=== PATIENT | male | born 1960 | race Caucasian/White ===

== ENCOUNTER → 2016-12-19 | Day surgery (SDC) | payer OTHER ==
[~2016-12-19] VITALS: Ht 190.5 cm; Wt 106.4 kg
[2016-12-19] VITALS (8 sets, daily range): BP systolic 128–145; BP diastolic 77–94; PULSE 60–71; RESP 12–16; O2SAT 92–100
[~2016-12-19] MED LIST: ALLO300T2 PO; ASPI-973 PO; Atropine 0.4 mg/mL Inj IVPUSH PRN; CeFAZolin Inj 2 GM in IV Premix 1 EACH IV ONE; CeFAZolin Inj 2 gm / 50mL D5W IV ONE; Dexamethasone 4 mg/mL Inj IVPUSH PRN; EPHEDrine Sulfate 50 mg/mL Inj IVPUSH PRN; FLUT16SP NS; HYDROcodone-APAP 5-325 mg Tablet PO PRN; HYDROmorphone 1 mg/mL Inj IVPUSH PRN; Ketorolac 15 mg/mL Inj IVPUSH ONE; Labetalol 5 mg/mL 4 mL Inj IV PRN; Lactated Ringer's 1,000 ML IV ONE; Lactated Ringer's 1,000 ML IV SCH; Lactated Ringer's 500 ML IV PRN; MetoCLOpramide 5 mg/mL 2 mL Inj IVPUSH PRN; Ondansetron 2 mg/mL 2 mL Inj IVPUSH PRN; Phenylephrine 10,000 mCg/mL Inj IVPUSH PRN; Ropivacaine-PF 0.5% 30 mL Inj INJ ONE; fentaNYL-PF 50 mCg/mL 2 mL Inj IVPUSH PRN; fentaNYL-PF 50 mCg/mL 2 mL Inj ONE
--- NOTE | 2016-12-19 13:14 | PCM.HPANE ---
Patient Data Date of Service: Dec 19, 2016 Surgeon Admitting Provider: Attending Provider:Rafat Bustillos MD Primary Care Physician:Ian Khan MD Other Provider:Toño Seth Anesthesia Reason for Visit Right Rotator Cuff Tear Ht/WT & BMI Height (Feet): 6 Height (Inches): 3 Weight (Kilograms): 106.4 Body Mass Index 29.00 Allergies Coded Allergies: No Known Allergies (Unverified , 12/19/16) Past Anesthesia History Anesthesia History: Denies:: Abnormal Airway, Anesthesia Reactions, Difficult Intubation, Fam Anesthesia Reaction, Fam Malignant Hypertherm Diabetes History Hx Diabetes?: No MRSA MRSA: No Medications Reported Medications Fluticasone Propionate (Fluticasone Propionate Nasal)16 Gm [place].susp2 [place] NS DAILY #16 GM Ref 0 10/16/16 Allopurinol 300 Mg [id number] Mg PO DAILY Ref 0 10/16/16 Discontinued Reported Medications Aspirin 81 Mg [id number] Mg PO DAILY Ref 0 12/14/16 History History of ENT Problems?: No HEENT History: Denies:: Abnormal Airway Cataracts Difficult Intubation Dysphagia Hearing Problem Sinus Problem TMJ Hx of Heart Problems?: No Cardiovascular History: Denies:: Heart Murmur Hypertension Irregular Heartbeat Pacemaker Valvular Heart Disease Hx of Respiratory Problem?: No Respiratory History: Denies:: Asthma COPD Emphysema Pneumonia Use of C-PAP Machine Hx Neurologic Problems?: No Neurological History: Denies:: Alzheimer's Disease CVA Headaches Multiple Sclerosis Parkinson's Disease Seizures Hx of GI Problems?: No Gastrointestinal History: Denies:: Cirrhosis Heartburn Hepatitis Hiatal Hernia Hx of Problems?: No Genitourinary History: Denies:: Kidney Stones Urinary Tract Infection Male Hx: Denies:: Prostate Problems Scrotal Mass Testicular Surgery Skin History: Positive for:: History Skin Disorders? (S/P EXC FACIAL BASAL CELL CA) Denies:: Pressure Ulcers Hx Musculoskeletal Problems?: Yes Musculoskeletal History: Positive for:: Musculoskeletal Trauma (S/P RT KNEE SCOPE 09/2016 RT ROTATOR CUFF TEAR=CURRENT PROBLEM) Denies:: Joint Replacement Hx of Psycho/Social Problems?: No Hx Surgeries?: Yes (KNEE SCOPE,EXC FACIAL BCC) Hx Any Other Health Problems?: Yes Other History: Positive for:: Cancer (BCC facial) Denies:: Endocrine Disease Hospitalization Thyroid Disease History Blood Transfusions: Denies:: Blood Transfusions Hx Diabetes: No Hx Alcohol Use: NoHx Substance Use: No Smoking Status: Never Smoker Have You Smoked inLast 12 mo: No Stop/Bang Treated for Sleep Apnea?: No Do You Have a CPAP Machine?: No S-Snoring: Do You Snore Loudly: No T-Tired: feel tired, fatigued: No O-Obsered: Observed not breath: No P-Blood Pressure: treated: No B- Body Mass Index > 35 kg/m2: No A- Age over 50: Yes N- Neck Large Circumference: Yes G- Gender Male: Yes DRAKE Total Score: 3 DRAKE Risk Assessment: High Risk, =/>3 Yes Risk Assessment Category Category 1A: Patient has history of documented sleep apnea, and HAS NOT received any narcotic, sedative or anesthesia administration during this stay. Category 1B: Patient has history of documented sleep apnea, and HAS received any narcotic , sedative or anesthesia administration during this stay Category 2: Patient has SUSPECTED Obstructive Sleep Apnea, and HAS received any narcotic , sedative or anesthesia administration during this stay. Category 3: Patient has SUSPECTED Obstructive Sleep Apnea and HAS NOT received narcotic, sedative or anesthesia administration during this stay. Category 4: Outpatient in Procedural Areas with known sleep apnea or who screen positive for High Risk via the STOP/BANG questionnaire. Exam Exam Vital Signs Vital Signs Date Time Temp Pulse Resp B/P Pulse Ox O2 Delivery O2 Flow Rate FiO2 12/19/16 12:30 36.2 62 16 129/81 100 Room Air General Appearance: Alert, Oriented X3, Cooperative HEENT/AIRWAY: MP 2 Lungs: Clear to Auscultation, Normal Air Movement Heart: Exam Unremarkable, Normal S1, Normal S2 Meds/Labs/Diagnostics Admission Meds Current Medications Lactated Ringer's (Lr) 1,000 ml @ ud STK-MED ONCE IV Last administered on t 12:30; Start 12/19/16 at 12:30; Stop 12/19/16 at 12:58; Status DC Plan Impression Patient chart reviewed, patient interviewed and anesthestic plan with risks, benefits, and alternatives discussed, and informed consent obtained. NPO Status: 0800 ASA Physical Status: ASA2 Mod Systemic Disease Anesthetic Plan: GA, Regional Block (ISB/Supraclavicular block / Dr. Olguin) Bene/Risks/Altern/Consents: Yes HP Complete Prior to Induction: Yes Giorgi Ahumada 1, 2017 13:14
--- NOTE | 2016-12-19 14:23 | PCM.ORTHOP ---
Orthopedic Operative Report Date of Service: Dec 19, 2016 Pre Operative Diagnosis right shoulder rotator cuff tear Post Operative Diagnosis right shoulder rotator cuff tear Procedure right shoulder rotator cuff debridement, biceps tenodesis, subacromial decompression, distal clavicle excision, extensive debridement with partial synovectomy Surgeon Surgeon: Rafat Bustillos MD Assistants: Joel Farnsworth Indication for Procedure right shoulder rotator cuff tear Findings per dictation Details of Procedure SENIOR LICENSING MANAGER SURGEON: During the operation, the services of physician neurosurgical nurse were medically indicated and necessary to provide exposure of the operative site for the surgical procedure and to maintain the limb in a proper position to carry out the operation safely and efficiently. Without the qualified offset assistant press operator being present, it would have extended the operative procedure and made the procedure technically more difficult to perform. INDICATIONS: The patient is Yayo Berrios who is a 56-year-old male. The risks, benefits, and alternatives of surgery were discussed with the patient. The risks included but were not limited to infection, bleeding, damage to vessels and nerves, loss of motion, continued pain, complications due to anesthesia including myocardial infarction, stroke, , etc. The patient stated understanding of the nature of the surgical procedure and gave written and verbal consent to proceed. PROCEDURE: The patient was brought into the operating room and placed supine on the operating room table. A supraclavicular block was placed in the right shoulder for postoperative pain management, followed by the administration of general anesthesia. . The patient was then placed into the lateral decubitus position with the right side up. An axillary role was placed and the legs were padded as necessary to avoid pressure points. The patient was maintained in position with a beanbag evacuation device. A thorough examination of the right shoulder under anesthesia was performed. The patient had 120 degrees of forward elevation and 110 degrees of abduction. In 90 degrees of abduction there was 80 degrees of external rotation and 70 degrees of internal rotation. The shoulder was stable to load-shift testing. The right upper extremity was then prepped and draped in the usual fashion. The arm was suspended with a well-padded sleeve with eight/ten pounds of balanced suspension in the arthroscopic position. A standard posterior portal was made inferior and medial to the posterior corner of the acromion. The incision was made only through skin. The trocar was advanced through the soft tissue with a blunt-tipped obturator. This was inserted into the glenohumeral joint without difficulty. The 4 mm arthroscope was placed through the cannula and attached to the video monitor system. Inflow was achieved using the arthroscopic pump. The pressure was maintained at 35-40 mm of mercury throughout the entire procedure. Once the arthroscope confirmed visualization within the shoulder joint, it was advanced anteriorly into the rotator interval beneath the biceps tendon. A Wissinger unruly was then used to create the anterior portal from inside-out. A second anterior stab wound incision was made only through skin and an anterior cannula was placed. A routine arthroscopic survey was begun. Survey: Partial-thickness rotator cuff tear [id number], biceps tenosynovitis, labral fraying The arm was then placed in the bursoscopy position. Complex surgical procedure: This was an extremely complex surgical procedure which took approximately 30-40 % longer to complete than a standard repair. Without the use of a qualified first aid director, this surgical procedure would have taken even considerably longer and been unable to be performed arthroscopically. Enriqueta procedure: Within the subacromial space there was marked fraying on the undersurface of the coracoacromial ligament consistent with impingement. A decision was thus made to proceed with arthroscopic subacromial decompression. Using an RF wand and a motorized shaver the coracoacromial ligament was recessed from the anterior acromial edge. An orientation trough was made along the lateral margin of the acromion, from the anterior corner back to the posterior margin of the AC joint. A sequential subacromial smoothing was carried out, removing approximately [default value] mm of bone corresponding to the preoperative radiographs. Once completed, the AC joint capsule was opened. There was inferior spurring as well as synovitis and arthritic changes at the AC joint and a decision was made to proceed with distal clavicle excision. Using a motorized bur working initially from posteriorly and then anteriorly, the outer 10 mm of the distal clavicle were excised. The arthroscope was then positioned anteriorly within the AC resection site confirming an excellent level of resection. Attention was then directed to the rotator cuff. Using the motorized shaver from both the anterolateral portal and the posterior portal, the rotator cuff was debrided. Extensive bursectomy and synovitis was noted and was debrided with a shaver and arthritis. The previously tagged biceps was tenotomized in the joint, was tenodesed to the rotator cuff in a groove in the supra pectoral region The arm was placed through range of motion and the rotator cuff and humeral head moved well as a unit. There was no further evidence for impingement. The subacromial space was irrigated with an additional 500 mL lactated Ringer solution. Excess fluid was drained. The arm was placed through a range of motion and the rotator cuff and humeral head moved well as a unit. There was no further evidence of impingement. The subacromial space was irrigated with an additional liter of lactated Ringer s solution and excess fluid was drained. The arthroscopic portals were closed with #4-0 Nylon and Steri-Strips. A dry sterile dressing was applied, followed by a neutral rotation sling. The patient was awakened in the operating room and transported to the recovery room in satisfactory condition. The patient appeared to tolerate the procedure well. There were no complications noted. Grafts, Implants: Implants-See Implant Record Complications There were no periprocedural complications identified. Condition Stable Anesthetic Administered: GA Catheters: None Output, Estimated Blood Loss: 10 Blood Admin during surgery: No Surgical Cast or Splint: Shoulder Immobilizer Surgical Specimen Removed: No Specimen sent to Pathology: No copies to: Rafat Bustillos MD, Christopher L MD Dec 19, 2016 14:23 percutaneously just off the lateral acromion. The central stylet was removed, and the rotator cuff was punctured along the bursal surface using the spinal needle to identify the calcific deposit. The calcium was identified within the hub of the needle. The motorized shaver was then used to unroof the calcific deposit. The calcium was visualized as it was expressed from the rotator cuff tendon. The extent of the calcific deposit was circumferentially debrided from medial to lateral and from anterior to posterior. A probe was introduced and the tendon was carefully inspected. There was no further calcium identified. The lateral communication with the tuberosity was exposed, debrided and a microfracture was carried out to aid in a healing response. With the defect present a decision was made to proceed with rotator cuff repair. While visualizing from laterally, a spectrum suture hook was then used from posteriorly to penetrate across the rotator cuff, first posteriorly and then anteriorly. A suture Shuttle Relay system was then used to pass a #1 PDS, #2 Orthocord suture across the rotator cuff tear. The defect in the rotator cuff was then closed using the suture by using a locking sliding knot, followed by alternating half-hitches. Two sutures were placed for this defect, repairing the tendon, closing the defect. Single anchor helix supraspinatus repair Attention was then directed to the rotator cuff repair. Using the motorized shaver from both the anterolateral portal and the posterior portal, the free edge of rotator cuff was debrided. The anatomic neck of the tuberosity was then gently abraded, using the motorized shaver and exposing good bone for healing. Via an accessory anterolateral portal, a triple-loaded anchor was inserted, with excellent fixation purchase. The three stitches were then transported across the rotator cuff using a shuttling technique, spacing the sutures equidistantly. Once the sutures were all passed, they were sequentially tied, using SMC knots and alternating half-hitches, which gave excellent loop and knot security. This reduced the rotator cuff back to the anatomic neck. A microfracture was then performed laterally on the tuberosity creating a crimson duvet to aid in tendon healing. The arm was placed through range of motion and the rotator cuff and humeral head moved well as a unit. There was no further evidence for impingement. The subacromial space was irrigated with an additional 500 mL lactated Ringer solution. Excess fluid was drained. Two anchor helix supraspinatus repair Attention was then directed to the rotator cuff repair. Using the motorized shaver from both the anterolateral portal and the posterior portal, the free edge of rotator cuff was debrided. The anatomic neck of the tuberosity was then gently abraded, using the motorized shaver and exposing good bone for healing. Via an accessory anterolateral portal, two triple-loaded were then inserted with excellent fixation purchase. The 6 stitches from these two anchors were then transported across the rotator cuff spacing the sutures equidistantly. Once the sutures were all passed, they were sequentially tied using SMC knots and alternative half-hitches which gave excellent loop and knot security. This reduced the rotator cuff back to the anatomic neck. A microfracture was then performed laterally on the tuberosity creating a crimson duvet to aid in tendon healing. The arm was then placed through a range of motion. The rotator cuff and humeral head moved well as a unit. There was no further evidence for impingement ARTHROSCOPIC BICEPS TENODESIS Attention was then directed towards biceps tenodesis. With the arthroscope in the lateral viewing portal a motorized shaver was introduced from the anterior working portal, identifying the Mehalik hitch at the top of the bicipital groove. A motorized shaver and VAPR wand was then used inferior from this, debriding the proximal humerus and identifying the falciform ligament. The biceps tendon was then identified and the bicipital sheath was opened using a probe. The groove did reveal evidence of synovitis in this area. With appropriate resting tension maintained using the Mehalik hitch, a percutaneous spinal needle was used to flor the resting position of the biceps tendon, as well as the position for tenodesis at the bottom of the inter-tubercular groove. A blue lilly was then used to flor with tendon. An accessory anterior inferior portal was made approximately 6-7 cm from the anterior acromial margin under arthroscopic control. A jhhn-gyh-[id number] technique was used to spread the soft tissues down to the level of the bicipital groove. The long head of the biceps was then retrieved using a grasper and the tendon was brought out the wound. A #2 Double loaded Fiberwire Mehdi Net stitch was placed for a length of 1.5 cm from the blue lilly marking position in the proximal biceps. This was then sized using the Arthrex biotenodesis set and measured mm. A mm reamer was then selected. A Canuflex cannula was then placed onto the bicipital groove. The biotenodesis guide wire was placed into the proximal humerus at the designated marking position corresponding to the appropriate tension and introduced just to the posterior cortex. The anterior cortex was then reamed using the reamer for a depth of 20 mm. 2 7/64 holes were then created approximately 1.5 cm inferior to the tunnel for suture passing. A Spectrum suture hook was placed through the inferior flake miller helper hole and retrieved out the proximal tunnel. A shuttling technique was carried out passing one suture limb on either side of the long head of the biceps. Tension was then applied to the biceps sutures, reducing and docking the biceps intra-osseously. With the elbow in full extension and the hand in full supination tension was applied to reapproximate the anatomic resting length and the biceps was then secured using an arthroscopic Revo knot, tying the two limbs of the suture together over the biceps tendon. This gave excellent secure fixation. The biceps was then probed and had stable fixation. The arm was placed through a range of motion and the rotator cuff and humeral head moved well as a unit. There was no further evidence of impingement. The subacromial space was irrigated with an additional liter of lactated Ringer s solution and excess fluid was drained. The arthroscopic portals were closed with #4-0 Nylon and Steri-Strips. A dry sterile dressing was applied, followed by a neutral rotation sling. The patient was awakened in the operating room and transported to the recovery room in satisfactory condition. The patient appeared to tolerate the procedure well. There were no complications noted. Grafts, Implants: Implants-See Implant Record Complications There were no periprocedural complications identified. Condition Stable Anesthetic Administered: GA Catheters: None Output, Estimated Blood Loss: 10 Blood Admin during surgery: No Surgical Cast or Splint: Shoulder Immobilizer Surgical Specimen Removed: No Specimen sent to Pathology: No copies to: Rafat Bustillos MD, Christopher L MD Dec 19, 2016 14:23
--- NOTE | 2016-12-19 18:03 | PCM.ANEP1 ---
Post Anesthesia Phase 1 PACU Phase 1 Assessment Date of Service: Dec 19, 2016 Vital Signs Vital Signs Date Time Temp Pulse Resp B/P Pulse Ox O2 Delivery O2 Flow Rate FiO2 12/19/16 16:55 36.0 67 14 141/83 97 Room Air 12/19/16 16:50 60 16 144/84 98 Simple Mask 8 12/19/16 16:45 63 14 141/77 96 Simple Mask 8 12/19/16 16:42 71 15 138/87 97 Simple Mask 8 12/19/16 16:40 71 15 138/87 93 Simple Mask 3 12/19/16 16:35 36.0 70 12 145/89 92 Simple Mask 3 12/19/16 12:30 36.2 62 16 129/81 100 Room Air Anesthetic Administered: GA, Regional Block HEALY's with Equal Strength: Yes Pain: No Nausea or Vomiting: No Airway Device: Nasal Airway Oxygen Delivery: Simple Mask (l) Lungs: Clear to Auscultation, Normal Air Movement Dermatome Level: Full Sensation (Limited by sensorimotor block from supraclavicular block) Giorgi Ahumada DO Dec 19, 2016 18:03
--- NOTE | 2016-12-19 19:05 | PCM.ANEP2 ---
Post Anesthesia Evaluation ASA/CMS Post Anesthesia Date of Service: Dec 19, 2016 VS in Patient's Normal Range?: Yes Resp Stable; Airway Patent?: Yes CV Function & Hydration Stable: Yes Mental Status Recovered?: Yes Pain control Satisfactory?: Yes N/V Control Satisfactory?: Yes Giorgi Ahumada DO Dec 19, 2016 19:05
== END | disposition home or self-care (01) ==
LOC: SAS 11:08
PROVIDERS: ATTEND Orthopaedic Surgery
DX: M75.121 Complete rotator cuff tear or rupture of right shoulder, not specified as traumatic (principal); M75.41 Impingement syndrome of right shoulder; M75.21 Bicipital tendinitis, right shoulder; Z79.82 Long term (current) use of aspirin
CPT/HCPCS: 23430; 29824; 29826; 29827; 76942; J0690; J2250; J2795; J3010; J7120